=== PATIENT | male | born 1985 | race Caucasian/White ===

== ENCOUNTER → 2020-06-08 | Emergency (ER) | payer OTHER ==
[~2020-06-08] VITALS: Ht 170.2 cm; Wt 113.6 kg
[2020-06-08 06:56] VITALS: BP 157/93
--- NOTE | 2020-06-08 09:49 | NUR ---
STILL AWITING FOR MRI RESULT.
== END | disposition home or self-care (01) ==
LOC: ER 06:56
DX: M75.22 Bicipital tendinitis, left shoulder (principal); M67.813 Other specified disorders of tendon, right shoulder; M54.2 Cervicalgia; F17.200 Nicotine dependence, unspecified, uncomplicated; Z88.5 Allergy status to narcotic agent
CPT/HCPCS: 73221; 99284